=== PATIENT | male | born 1960 | race African-American/Black ===

== ENCOUNTER 2017-10-01 13:31 | Emergency (ER) | payer OTHER ==
[~2017-10-01] VITALS: Ht 180.3 cm; Wt 70.5 kg
[~2017-10-01 13:31] MED LIST: excedrine
[2017-10-01 13:34] VITALS: BP 162/74; PULSE 80; RESP 12; TEMP 97.9; O2SAT 99
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
[2017-10-01] MEDS ORDERED: TRAM50TA PO (14:20)
[2017-10-01] MEDS ORDERED: CYCL10TA PO (14:20)
[2017-10-01] MEDS ORDERED: MOBI15TA PO (14:20)
== END 2017-10-01 14:39 | disposition home or self-care (01) ==
LOC: NEPK 13:31
DX: R52 Pain, unspecified (principal); V43.52XA Car driver injured in collision with other type car in traffic accident, initial encounter; Y92.414 Local residential or business street as the place of occurrence of the external cause
CPT/HCPCS: 99283